=== PATIENT | male | born 1965 | race Native Hawaiian/Other Pacific Islander ===

== ENCOUNTER 2017-03-09 08:37 | Day surgery (SDC) | payer OTHER ==
[2017-03-09 10:03] LABS: PLATELET COUNT 163 K/uL (142-355)
[2017-03-09 10:12] LABS: POTASSIUM 4.6 mmol/L (3.6-5.2); SODIUM 137 mmol/L (136-145)
== END 2017-03-09 14:20 | disposition home or self-care (01) ==
LOC: OR 08:37
PROVIDERS: Student in an Organized Health Care Education/Training Program
PROC: 0HQEXZZ Repair Left Lower Arm Skin, External Approach (ICD-10-PCS; principal; 2017-03-09)
PROC: 0HBEXZZ Excision of Left Lower Arm Skin, External Approach (ICD-10-PCS; 2017-03-09)
DX: D04.62 Carcinoma in situ of skin of left upper limb, including shoulder (principal); L57.0 Actinic keratosis
CPT/HCPCS: 80053; 85027; J0690; J1100; J1170; J2001; J2250; J2405; J2704; J3010; S0028

== ENCOUNTER 2021-08-18 19:23 | Emergency (ER) | payer OTHER ==
[~2021-08-18] VITALS: Ht 188 cm; Wt 127.0 kg
[2021-08-18 20:10] VITALS: BP 138/71; TEMP 98.7
== END 2021-08-18 20:10 | disposition home or self-care (01) ==
LOC: ED 19:23
DX: L76.21 Postprocedural hemorrhage of skin and subcutaneous tissue following a dermatologic procedure (principal)
CPT/HCPCS: 99283